=== PATIENT | female | born 1950 | race Caucasian/White ===

== ENCOUNTER 2023-04-01 13:59 | Outpatient (CLI) | payer MEDICARE | END 2023-04-01 14:00 | disposition home or self-care (01) | LOC: CSHMAMMO 13:59 | PROVIDERS: ATTEND Physician Assistant | DX: Z12.31 Encounter for screening mammogram for malignant neoplasm of breast (principal) | CPT/HCPCS: 77063; 77067 ==

== ENCOUNTER 2023-04-09 08:29 | Outpatient (CLI) | payer MEDICARE ==
[2023-04-09] MEDS ORDERED: Magnevist 469MG/ML 20 ML VIAL ONE (09:00)
== END 2023-04-09 08:30 | disposition home or self-care (01) ==
LOC: CSHMRI 08:29
PROVIDERS: ATTEND Physician Assistant
DX: D33.3 Benign neoplasm of cranial nerves (principal); R41.3 Other amnesia; Z98.890 Other specified postprocedural states; I67.9 Cerebrovascular disease, unspecified; H61.92 Disorder of left external ear, unspecified
CPT/HCPCS: 70553; A9579